=== PATIENT | female | born 1995 | race Caucasian/White ===

== ENCOUNTER 2023-08-01 14:06 | Outpatient (CLI) | payer OTHER, SELFPAY | END 2023-08-01 14:07 | disposition home or self-care (01) | PROVIDERS: Visit Provider Advanced Practice Midwife | DX: Z01.419 Encounter for gynecological examination (general) (routine) without abnormal findings (principal); Z13.6 Encounter for screening for cardiovascular disorders; Z13.1 Encounter for screening for diabetes mellitus; Z13.29 Encounter for screening for other suspected endocrine disorder | CPT/HCPCS: 80061; 84443 ==